=== PATIENT | male | born 1990 | race Caucasian/White ===

== ENCOUNTER 2021-12-24 00:09 | Emergency (ER) | payer BC, MEDICAID ==
[~2021-12-24] VITALS: Ht 182.9 cm; Wt 90.9 kg
[~2021-12-24 00:09] MED LIST: DIPH-186 PO
[2021-12-24] MEDS ORDERED: cloNIDine 0.1 mg tablet PO ONE (03:30)
[2021-12-24] MEDS ORDERED: ondansetron 4mg rapidly disintigrating tab PO ONE (03:30)
[2021-12-24 04:02] VITALS: BP 137/89
--- NOTE | 2021-12-24 04:06 | NUR ---
Pateint refused catapress as it makes his legs fall alseep and cramp
== END 2021-12-24 04:07 | disposition home or self-care (01) ==
LOC: ER 00:10
DX: F11.20 Opioid dependence, uncomplicated (principal); R11.2 Nausea with vomiting, unspecified; Z79.899 Other long term (current) drug therapy
CPT/HCPCS: 99283